=== PATIENT | male | born 1975 | race Caucasian/White ===

== ENCOUNTER 2016-12-02 20:17 | Observation (INO) ==
--- NOTE | 2016-12-02 21:15 | Diag Imaging Result Doc PS360 ---
EXAM: FOOT COMPLETE RIGHT HISTORY: PAIN TECHNIQUE: Three views of the right foot COMMENT: There is dislocation of the first cuneiform from the tarsal navicular with apparent fracture as well as dislocation and fracture of the base of the second metatarsal tarsal. There is possible dislocation of the remaining metatarsals as well anteriorly, and there is a possible nondisplaced fracture of the cuboid. IMPRESSION: Multiple fractures and dislocations in the Lisfranc joint and tarsal bones as described. Electronically signed by Sukhi Zheng 12/02/2016 9:12 PM
[2016-12-02] MEDS ORDERED: NORCO-10 PO ONE (22:30)
--- NOTE | 2016-12-02 22:34 | PROVIDER DOCUMENTATION ---
HPI-General Adult - General Chief Complaint: Extremity Injury Stated Complaint: RT FOOT PAIN Time Seen by Provider: 12/02/16 22:21 Source: patient - History of Present Illness -Gen Adult Nature of Presenting Problems: Pt. is 40 yom that presents with c/o Right foot pain. Pt. reports he was playing basketball and another player came down landing on his right foot. Pt. reports he is unable to walk on it and states that it is throbbing and slightly numb. Pt. can move toes but it hurts to move them. Pt. denies any other injury. Location of Pain/Injury: reports: feet (Right). denies: none, head, face, mouth , neck, chest, upper extremity, hand(s), abdomen, back, pelvis, genitalia, lower extremity, upper body, lower body, generalized, other Pain Radiation: reports: no radiation. denies: arm(s), back, buttocks, chest, epigastric, feet, groin, jaw, flank (L), legs (lower), LLQ, LUQ, neck, periumbilical, flank (R), RLQ, RUQ, shoulder(s), scapula, scrotal, sternal notch , suprapubic, legs (upper), urethral, vaginal, other Quality of Pain: reports: aching, throbbing. denies: burning, cramping, dull, fullness, indigestion, pressure, sharp, stabbing, tearing, tightness Severity: reports: moderate. denies: mild, severe Onset/Duration: reports: abrupt, just prior to arrival Timing: reports: still present. denies: improving, gone now, resolved prior to arrival, intermittent, constant, changing over time, getting worse Context/Activities at Onset: reports: moderate activity, recent trauma history. denies: recent emotional stress, recent physical stress, possible bad food, cold exposure, out of country travel Modifying Factors: improves with: immobilization. worse with: movement Associated Symptoms: reports: joint pain (Right foot), trouble walking. denies : denies symptoms, anxiety, arm pain, back/neck pain, chest pain, constipation, cough, diaphoresis, diarrhea, dizziness, EENT symptoms, fatigue, fever/chills, genitourinary problems, headaches, heartburn, loss of appetite, malaise, muscle aches, sinus congestion/drainage, nausea, rash, seizure, shortness of breath, sensory/motor loss, pain with inspiration, swelling/mass in abdomen, syncope, vomiting, weakness, other Similar Symptoms Previously?: No Recently seen or treated by another doctor?: No Review of Systems - Adult - REVIEW OF SYSTEMS - ADULT Constitutional: reports: see HPI. denies: chills, fever, fatique Eyes: reports: see HPI. denies: discharge, blurred vision, eye pain Ears, Nose, Mouth & Throat: reports: see HPI. denies: ear pain, nose pain, mouth swelling, throat swelling Cardiovascular: reports: see HPI. denies: chest pain, irregular heart rate, palpitations, syncope Respiratory: reports: see HPI. denies: cough, dyspnea on exertion, pleurisy, shortness of breath, wheezing Gastrointestinal: reports: see HPI. denies: abdominal pain, hematemesis, diarrhea, nausea, vomiting Genitourinary: reports: see HPI. denies: hematuria, incontinence, urgency Musculoskeletal: reports: see HPI, joint pain (Right foot). denies: bone pain, back pain, muscle aches, neck pain Integumentary: reports: see HPI. denies: hives, itching, rash, skin thickening Neurological: reports: see HPI. denies: ataxia, headache/migraines, numbness, seizure, tremors Psychiatric: reports: see HPI. denies: anxiety, depression, emotional problems , insomnia, panic attacks, suicidal thoughts Past History - Adult - PAST MEDICAL HISTORY-ADULT Review of Records: reports: Old Records Reviewed, Nursing Assessment Review, Medications Reviewed, Social history reviewed & non-contributory. - IMMUNIZATION STATUS Childhood Immunizations: See Nurse Assessment Flu Vaccine: See Nurse Assessment - FAMILY HISTORY Family History: reviewed, not pertinent - SOCIAL HISTORY Smoking: quit greater than 1 year Physical Exam-General - PHYSICAL EXAM-ADULT Initial Vital Signs Reviewed: Yes - CONSTITUTIONAL General Appearance: alert, moderate distress, thin. negative: obese, anxious, lethargic, slow to respond, obtunded, combative - EYES Eyes: PERRL/EOMI, pink conjunctivae. negative: conjuctival exudate, scleral icterus, subconjunctival hemorrhage - HEAD, EARS, NOSE, MOUTH & THROAT HENMT: normocephalic/atraumatic, moist mucous membranes. negative: angioedema, frontal tenderness, maxillary tenderness - NECK Neck: non-tender, full range of motion, supple, normal inspection. negative: lymphadenopathy, trachial deviation, thyromegaly - RESPIRATORY Respiratory: lungs clear, normal breath sounds. negative: crackles, rales, rhonchi, stridor, wheezing - CARDIOVASCULAR Cardiovascular: normal peripheral pulses, regular rate, rhythm, no edema, no JVD , no murmur. negative: extra beats, friction rub, irregularly irregular - GASTROINTESTINAL (ABDOMEN) Abdominal Exam: normal bowel sounds, non tender, soft. negative: distended, guarding, rigid, rebound, tenderness, hernia, mass - LYMPHATIC Lymphatic: no adenopathy. negative: axilla node tender, cervical node tenderness - MUSCULOSKELETAL Back Exam: normal inspection, no CVA tenderness, no vertebral tenderness. negative: ecchymosis, swelling, vertebral tenderness Extremity: deformity (Right foot), swelling (Right foot), tenderness (Right foot ). negative: normal range of motion, non-tender, normal gait, normal inspection , erythema, inflammation Peripheral Pulses: radial (R): 2+, radial (L): 2+ - SKIN Integumentary: normal color, normal turgor, warm/dry, ecchymosis (Right foot). negative: cyanosis, diaphoresis, erythema, jaundice, mottled, pallor, petechiae , purpura, rash, swelling, tenderness - NEUROLOGIC Neurologic: grossly normal, no motor/sensory deficits. negative: aphasia, facial droop, focal weakness, motor weakness, sensory deficit - PSYCHIATRIC Psych/Mental Status: normal mood/affect, normal thought content, normal thought process, oriented x 3. negative: anxious, paranoid, tearful Progress - PLAN OF CARE/RESULTS Progress/Plan/Lab Results: Vital Signs - 8 hr 12/02/16 20:32 Temperature 98.3 F Pulse Rate 70 Respiratory Rate 17 Blood Pressure 146/96 O2 Sat by Pulse Oximetry 100 Orders Category Date Time Status FOOT COMPLETE RIGHT [RAD] Stat Exams 12/02/16 20:29 Completed Discussed results and plan of care with patient. Patient agrees with plan and verbalizes understanding. - XRAY 1 XRAY: Right XRAY Study: Foot (Multiple fractures and dislocations in the Lisfranc joint and tarsal bones as described. ([place])) XRAY Interpretation: See note - CONSULTS/PCP/HOSPITALIST Notification #1 *Consult/PCP/Hospitalist*: Dr. Naik Time Discussed: 22:35 Reason/Comments: Consult Consult Disposition: other (Will call Dr. Chisholm and see how he wants to handle this then call the ED back.) #2 Consult: Dr. Naik Time Discussed: 22:48 Reason/Comments: Admission Consult Disposition: Admit (Dr. Naik states to admit the patient to Dr. Chisholm, Keep him NPO after midnight and he will repair in the morning.) Departure - Departure Date of Disposition Decision: 12/02/16 Time of Disposition Decision: 22:51 DIAGNOSIS: Multiple fractures of foot, closed Qualifiers: Encounter type: initial encounter Laterality: right Qualified Code(s): S92.901A - Unspecified fracture of right foot, initial encounter for closed fracture Disposition: ADMITTED INPATIENT 09 Certified Medical Emergency: Emergent Condition: Stable Referrals and Follow-Ups: None,PCP [Primary Care Provider] - - Critical Care Note This patient required my direct & personal management of CC.: No Attestation - Physician/ SPARKLE Attestation Patient care was provided by Advanced Practice Provider:: Yes Advanced Practice Provider:: Miladys Vo (The physician is on site and was consulted but did not have face to face contact with the patient.) Advanced Practice Provider documentation review:: The Mid-level provider documentation, treatment plan and medical decision making was reviewed by the physician who agrees with all treatment and medical decision making by the P.
[2016-12-02] MEDS ORDERED: ZOFRAN IV PRN (22:52)
[2016-12-02] MEDS: NS 1,000 ML IV ONE (23:52)
[2016-12-02] MEDS: MORPHINE IV PRN (23:53)
[2016-12-02] MEDS ORDERED: NS 1,000 ML ONE (23:58)
[2016-12-03 00:24] LABS: MANUAL DIFF NEEDED? NO
[2016-12-03 00:27] LABS: BASO% 0.2 % (0.0-0.8); EOS# 0.12 X1000 (0.0-0.7); EOS% 1.4 % (0.0-10.0); HEMATOCRIT 39.7 % (42.0-52.0); HEMOGLOBIN 13.6 g/dL (14.0-18.0); LYMPH# 1.66 X1000 (1.2-3.4); LYMPH% 19.8 % (20.5-51.1); MCH 30.8 PG (27-31); MCHC 34.3 g/dL (33-37); MONO# 0.53 X1000 (0.11-0.59); MONO% 6.3 % (1.7-9.3); MPV 10.2 FL (7.4-10.4); NEUT% 72.3 % (42.2-75.2); PLT 298 X1000 (130-400); RBC 4.41 XMIL (4.7-6.1)
[2016-12-03] MEDS: NS 1,000 ML IV ONE (00:35)
[2016-12-03 00:45] LABS: AGAP 10; ALBUMIN 4.7 g/dL (3.5-5.0); ALKALINE PHOSPHATASE 54 U/L (32-122); BUN 19 mg/dL (8-22); CALCIUM 9.7 mg/dL (8.8-10.2); CHLORIDE 102 mmol/L (98-107); COSMO 282; GOT 23 U/L (10-34); GPT 24 U/L (10-44); POTASSIUM 4.3 mmol/L (3.5-5.1); SODIUM 140 mmol/L (136-145); TCO2 28 mmol/L (25-35); TOTAL BILIRUBIN 0.23 mg/dL (0.20-1.00); TOTAL PROTEIN 7.3 g/dL (6.3-8.3)
[2016-12-03] MEDS: MORPHINE IV PRN ×5 (03:16→17:05)
--- NOTE | 2016-12-03 08:56 | HISTORY AND PHYSICAL ---
CHIEF COMPLAINT: Right foot pain. HISTORY OF PRESENT ILLNESS: Mr. Bueno is a 40-year-old male, who presented to the emergency department last night with right foot pain. He says he was playing basketball when another player came down on his foot and he began to have a lot of pain and was unable to ambulate. Most his pain is to the whole foot. He says it is worse when he tries to put any weight on it. Better after they splinted it in the ER. He is an inmate and police officers accompanying him in the room. PAST MEDICAL HISTORY: None. PAST SURGICAL HISTORY: None. SOCIAL HISTORY: He is incarcerated and so he gave up smoking about a year ago. FAMILY HISTORY: Noncontributory. REVIEW OF SYSTEMS: Positive for right foot pain. All other systems are essentially negative. PHYSICAL EXAMINATION: GENERAL: Well-developed, well-nourished male, in no acute distress. HEAD AND NECK: Normocephalic, atraumatic. RESPIRATIONS: Nonlabored. CARDIOVASCULAR: Has a regular pulse. ABDOMEN: Nondistended. EXTREMITIES: No tenderness to palpation of the left lower extremity. Right lower extremity exam, splint is clean, dry, and intact. He can barely move the toes at all secondary to pain. He can feel me touch to the toes, but they do feel just a little bit numb. He has good capillary refill to the toes. RADIOGRAPHS: Right foot radiographs were reviewed, which shows a Lisfranc fracture dislocation, with instability also at the medial naviculocuneiform joint. ASSESSMENT: Right midfoot fracture dislocation. PLAN: Will plan on doing today taking Mr. Bueno to the operating room for open versus closed reduction, percutaneous pinning, to stabilize that whole midfoot area. Once we get it stabilized temporarily today, will we get a CT scan and will plan for more definitive surgery in the days to come. I went over everything with him, about the plan. We went over the risks, benefits, and potential complications. Risks included, but were not limited to infection, wound healing problems, damage to nerves, arteries, veins, numbness, malunion, nonunion, hardware related issues, continued pain, deep venous thrombosis, and anesthesia related risks. After discussing these with the patient, he expressed understanding and wished to proceed. He will go on aspirin 325 b.i.d. for deep venous thrombosis prophylaxis postoperatively. Like I said, this will be a staged procedure. cc: Umang Chisholm MD
[2016-12-03] MEDS ORDERED: MORPHINE IV PRN (09:08)
[2016-12-03] MEDS ORDERED: ZOFRAN ONE (10:21)
[2016-12-03] MEDS ORDERED: DECADRON ONE (10:21)
[2016-12-03] MEDS ORDERED: XYLOCAINE-MPF 2% ONE (10:21)
[2016-12-03] MEDS ORDERED: DIPRIVAN 1% ONE (10:23)
[2016-12-03] MEDS ORDERED: FENTANYL ONE (10:23)
[2016-12-03] MEDS ORDERED: KEFZOL 1 GM/D5W 0 GM/0 ML IVPB ONE (11:05)
[2016-12-03] MEDS ORDERED: KEFZOL 2 GM/D5W 2 GM/50 ML IVPB ONE (11:31)
[2016-12-03] MEDS ORDERED: MARCAINE 0.5% PF ONE (11:31)
[2016-12-03] MEDS ORDERED: XYLOCAINE 1% ONE (11:31)
[2016-12-03] MEDS ORDERED: ROBINUL ONE (11:55)
[2016-12-03] MEDS: DILAUDID ONE ×2 (12:59→13:05)
--- NOTE | 2016-12-03 14:06 | Diag Imaging Result Doc PS360 ---
EXAM: EXTREM LOWER W/O CONTRAST HISTORY: sx TECHNIQUE: COMPARISON: None. FINDINGS: There are fractures and lateral dislocation of the second and third metatarsals. There is a single pin through the proximal second metatarsal. There are multiple fracture lines through the medial cuneiform. There is also a single fracture line through the cuboid. I believe there is a nondisplaced fracture to the lateral cuneiform. No fractures to the first, fourth, or fifth metatarsals. No fracture to the talus, calcaneus, or navicular bone. IMPRESSION: Multiple fractures involving the proximal second and third metatarsals as well as the medial cuneiform, cuboid, and likely lateral cuneiform. Electronically signed by Shashi Wilkinson 12/03/2016 2:04 PM
--- NOTE | 2016-12-03 17:06 | OPERATIVE NOTE ---
PROCEDURE DATE: 12/03/2016 PREOP DIAGNOSES: 1. Right second metatarsal fracture-dislocation. 2. Right medial cuneiform subluxation/dislocation. POSTOP DIAGNOSES: 1. Right second metatarsal fracture-dislocation. 2. Right medial cuneiform Subluxation/dislocation. PROCEDURES: 1. Right closed reduction with manipulation medial cuneiform dislocation. 2. Right closed reduction, percutaneous fixation 2nd metatarsal fracture-dislocation. SURGEON: Dr. Umang Chisholm. PATTERN AND CHAIN MAKER: Agustina Arguelles, Nurse Practitioner. BLOOD LOSS: About 5 mL. TOURNIQUET: Was up for less than 20 minutes. IMPLANTS: 0.063 K-wire. DISPOSITION: To PACU hemodynamically stable. INDICATION FOR PROCEDURE: Mr. Osmany Bueno, 40-year-old male who unfortunately was playing basketball yesterday when another player landed on his foot and he sustained this fracture- dislocation his midfoot. He is admitted the hospital last night and made NPO after midnight. I went over about surgery with him and he expressed understanding and wished to proceed. DESCRIPTION OF PROCEDURE: Mr. Bueno was identified in the preop holding area. Right foot was marked as correct surgical site. He was then wheeled to the operating room, placed supine on the operating table. All bony prominences well padded. He was induced under general anesthesia. LMA was placed. Tourniquet placed to the right thigh. Right lower extremity then prepped with chlorhexidine, gluconate scrub and then ChloraPrep and draped in normal sterile fashion. Surgical pause was performed. We identified the correct patient, correct side, correct procedure. Preop antibiotics were given which was IV Ancef 2 g. Esmarch was used to exsanguinate the right lower extremity and tourniquet inflated 300 mmHg. Fluoroscopic imaging was used from the outset and I performed a closed reduction of his medial cuneiform which that actually lined up really well and then also performed closed reduction then of that 2nd metatarsal fracture-dislocation at the TMT joint. I got pretty good alignment. It was still subluxed just a few millimeters laterally but not near as bad as it was preoperatively. Then used a 0.063 K-wire and was able to pass it through that 2nd metatarsal and then the 2nd TMT joint and stabilize that whole area there. On the lateral view can see that our alignment looked good you can still see a nika sign off the top over the TMT joints but that step-off is no longer there as it was preoperatively. Final images were saved, pin was cut short and Adaptic, 4 x 4s, ABD, soft roll posterior splint was applied. Tourniquet was let down and patient had good capillary refill return to the toes. Patient was then wheeled from general anesthesia, moved to his own bed and taken to PACU in stable condition. Postop patient will be nonweightbearing right lower extremity and will try to get him discharged from the hospital today if his pain is controlled. cc: Umang Chisholm MD
[2016-12-03] MEDS: KEFZOL 1 GM/D5W 1 GM/50 ML IVPB IV SCH (17:56)
[2016-12-03] MEDS: OXY IR PO PRN ×2 (18:47→21:49)
[2016-12-03] MEDS: PERIDEX MT SCH (21:49)
[2016-12-04] MEDS: MORPHINE IV PRN ×2 (01:48→08:47)
[2016-12-04] MEDS: KEFZOL 1 GM/D5W 1 GM/50 ML IVPB IV SCH (01:49)
[2016-12-04] MEDS ORDERED: LOVENOX SUBQ SCH (06:00)
[2016-12-04] MEDS: OXY IR PO PRN (06:29)
[2016-12-04 07:32] VITALS: BP 119/72
--- NOTE | 2016-12-04 08:26 | PROGRESS NOTE ---
DATE: 12/04/2016 SUBJECTIVE: Mr. Bueno is postoperative day 1 after closed reduction and percutaneous pinning of right Lisfranc fracture dislocation. He is feeling a lot better. OBJECTIVE: Right lower extremity exam, the splint is clean, dry, and intact. He has good capillary refill to all the toes. Good sensation to light touch to all the toes, and he can move his toes in dorsiflexion and plantar flexion. ASSESSMENT: Status post right closed reduction and percutaneous pinning of a Lisfranc fracture dislocation. PLAN: Mr. Bueno will be discharged today. I will see him in the clinic in about 1 week, and we will discuss definitive fixation at that time. He will remain nonweightbearing on the right lower extremity and will be discharged with Percocet for pain control and aspirin 325 b.i.d. for DVT prophylaxis. cc: Umang Chisholm MD
[2016-12-04] MEDS: PERIDEX MT SCH (08:47)
--- NOTE | 2016-12-04 09:33 | DISCHARGE SUMMARY ---
ADMISSION DATE: 12/02/2016 DISCHARGE DATE: 12/04/2016 PROCEDURE PERFORMED: On 12/03/2016, right closed reduction and percutaneous pinning of Lisfranc fracture and dislocation. DISCHARGE MEDICATIONS: Percocet 5/325 (dispense number 40) and aspirin 325 p.o. b.i.d. (dispense number 60). HOSPITAL COURSE: Mr. Bueno injured himself on 12/02/2016 and was taken to the ER and was admitted late that evening. We ended up taking him to the OR on 12/03/2016 for the above mentioned procedure, and he did well postoperatively and was feeling a lot better. He was discharged on 12/04/2016, and I will see him in a week in the clinic. cc: Umang Chisholm MD
== END 2016-12-04 09:17 ==
LOC: ED 20:17 → INTOOBSV 23:21 → 4N 23:21
PROVIDERS: ADMIT Orthopaedic Surgery; ATTEND Orthopaedic Surgery